=== PATIENT | male | born 1985 | race Caucasian/White ===

== ENCOUNTER 2016-08-01 15:12 | Emergency (ER) | payer SELFPAY ==
[~2016-08-01] VITALS: Ht 170.2 cm; Wt 72.6 kg
[2016-08-01 15:46] VITALS: BP 134/60
[2016-08-01] MEDS ORDERED: SULF1TAB24 PO (15:55)
--- NOTE | 2016-08-01 15:55 | PHYS DOC ---
Past Medical History Past Medical History: No Pertinent History Past Surgical History: No Surgical History Alcohol Use: None Drug Use: None Adult General Chief Complaint Chief Complaint: INSECT BITE HPI HPI Patient is a 31 year old male who presents with abscess on the left thigh and left low back that he noted yesterday. Patient denies drainage from the areas. Denies any fever. Review of Systems Review of Systems Constitutional: Denies fever or chills [] Musculoskeletal: Denies back pain or joint pain [] Integument: Left thigh and left lower back abscess Neurologic: Denies headache, focal weakness or sensory changes [] Endocrine: Denies polyuria or polydipsia [] Allergies Allergies Allergies Coded Allergies Type Severity Reaction Last Updated Verified No Known Drug Allergies 06/16/14 No Physical Exam Physical Exam Constitutional: Well developed, well nourished, no acute distress, non-toxic appearance. [] Skin: Left ventral thigh and lower back with a group of cellulitis lesions approx. 2X1 cm Back: No tenderness, no CVA tenderness. [] Extremities: No tenderness, no cyanosis, no clubbing, ROM intact, no edema. [] Neurologic: Alert and oriented X 3, normal motor function, normal sensory function, no focal deficits noted. [] Psychologic: Affect normal, judgement normal, mood normal. [] Current Patient Data Vital Signs Vital Signs Date Time Temp Pulse Resp B/P Pulse Ox O2 Delivery O2 Flow Rate FiO2 08/01/16 15:46 98.3 82 16 97 Room Air 98.3 EKG EKG [] Radiology/Procedures Radiology/Procedures [] Course & Med Decision Making Course & Med Decision Making Pertinent Labs and Imaging studies reviewed. (See chart for details) Patient is in the ED with cellulitis of the left lower back and left ventral type. Discharged with Bactrim for 10 days. Instructed to keep the area clean and dry. Given tetanus in the ED. Follow-up with primary care doctor in one week. Dragon Disclaimer Dragon Disclaimer This electronic medical record was generated, in whole or in part, using a voice recognition dictation system. Departure Departure Impression: Primary Impression: Cellulitis Disposition: HOME, SELF-CARE Condition: STABLE Referrals: UNKNOWN PCP NAME (PCP) Follow-up with your own doctor in one week Patient Instructions: Cellulitis, [id number] Additional Instructions: You were seen for cellulitis of the left lower back and left thigh. Keep the areas clean and dry. Complete your antibiotics. Follow-up with your own doctor in one week, come back to the emergency room if symptoms worsen or you develop a fever. Scripts Sulfamethoxazole/Trimethoprim (Bactrim Ds Tablet)1 Each Tablet1 Tab PO BID #20 TAB Prov:GINA CARO APRN 08/01/16 Problem Qualifiers Primary Impression: Cellulitis Site of cellulitis: extremity Site of cellulitis of extremity: lower extremity Laterality: left Qualified Code: L03.116 - Cellulitis of left lower limb GINA CARO APRN Aug 01, 2016 15:55
[2016-08-01] MEDS ORDERED: DIPHTH,PERTUSS(ACELL),TET TOX 0.5 ML DISP.SYRIN. VAX IM ONE (16:15)
== END 2016-08-01 15:58 | disposition home or self-care (01) ==
LOC: ER 15:12
DX: L03.312 Cellulitis of back [any part except buttock and flank] (principal); L02.416 Cutaneous abscess of left lower limb
CPT/HCPCS: 90471; 90715; 99283-25

== ENCOUNTER 2018-01-27 02:51 | Emergency (ER) | payer SELFPAY ==
[2018-01-27] MEDS: KETOROLAC 60 MG/2 ML INJ. IM (03:47)
[2018-01-27 07:04] LABS: NEGATIVE OBC STREP NEG; POSITIVE OBC STREP POS
== END 2018-01-27 04:15 | disposition home or self-care (01) ==
LOC: ER 02:51
DX: B34.9 Viral infection, unspecified (principal)
CPT/HCPCS: 87070; 87880; 96372; 99284; J1885